=== PATIENT | female | born 2005 | race Caucasian/White ===

== ENCOUNTER 2024-12-01 12:26 | Emergency (ER) | payer MEDICAID, SELFPAY ==
--- NOTE | ~2024-12-01 | CT_ITS ---
CLINICAL HISTORY: diffused abd pain, watery stools ?colitis CT abdomen and pelvis with contrast Comparison: None Findings: The visualized portions of the lungs are normal in appearance. The liver is normal in size without suspicious focal hepatic lesions. No intrahepatic or extrahepatic ductal dilatation is seen. The hepatic and portal veins are patent. No calcified gallstones in the gallbladder. Pancreas, spleen and adrenals are normal in appearance. No suspicious focal lesion of the kidneys. No hydronephrosis or calculi. The abdominal aorta demonstrates no evidence of aneurysmal dilatation or dissection. The colon is normal in appearance and without wall thickening or inflammatory change. Moderate amount of fecal material within the colon. No evidence of bowel obstruction. Appendix is normal. Multiple small follicles of the bilateral ovary. No intraperitoneal free air or fluid is visualized. No pathologic lymphadenopathy is seen. There are no osseous or soft tissue abnormalities. IMPRESSION: No acute findings. Moderate stool burden. This document has been electronically signed by: Guillermina Henning MD on 12/01/2024 19:16:08
[2024-12-01 12:40] VITALS: BP 118/70; PULSE 105; O2SAT 99
[2024-12-01 12:47] VITALS: BP 100/63; PULSE 113; RESP 20; TEMP 37.1; O2SAT 97; BMI 17.5
--- NOTE | 2024-12-01 12:51 | ED_ITS ---
HPI - General Adult General Chief complaint: Abdominal Pain Stated complaint: ABD PAIN,DIAHREA PER EMS Time Seen by Provider: 12/01/24 17:03 Source: patient Mode of arrival: ambulatory Limitations: no limitations History of Present Illness ED Provider: NABIL BUTCHER PA-C HPI narrative: 19 year old female with no significant pmhx presents to the ED today for evaluation of nausea, vomiting, abdominal pain and diarrhea x3 days. Reports feeling generally unwell. She reports acute onset of diffuse abdominal discomfort/ cramping 2 days ago. Shortly after began to have watery stools that are yellow and foamy. This has continued over the last 2 days with multiple bowel movements/ day. Admits to associated nausea and nonbloody vomiting. Denies recent travel outside of the [place]. Denies recent antibiotics. Does not recall eating anything out of the ordinary. She currently lives in a women's housing facility. She is not aware of any other residents having the same symptoms. Denies fever, chills, chest pain, flank pain, urinary sx, vaginal discharge or bleeding. No hx of abdominal surgeries. Related Data Allergies Allergy/AdvReac Type Severity Reaction Status Date / Time No Known Allergies Allergy Verified 12/01/24 12:50 Review of Systems 2 Review of Systems: Yes all other systems are reviewed and are negative PMFSH Past Medical History Attestation statement: The following information was validated with the patient. Source: old records reviewed and nursing notes reviewed Social History Social History Advance Directives: No Advance Directives Information Provided: No Do you have a plan to hurt others: No Plan Physical Exam ED Vital Signs: Vital Signs - 24 hr 12/01/24 12:47 12/01/24 17:17 12/01/24 18:58 Temperature 98.8 F 99.0 F 98.4 F Pulse Rate 113 H 98 76 Respiratory Rate 20 20 20 Blood Pressure 100/63 109/59 L 93/61 Pulse Oximetry 97 99 99 Oxygen Delivery Method Room Air Room Air Room Air BMI result Body Mass Index 17.5 tachycardic, afebrile General: Well appearing, in no acute distress. Skin: Warm, dry, intact. No rashes or lesions. Head: Normocephalic, atraumatic. EENT: Hearing is intact b/l. Conjunctiva clear. PERRLA. EOM intact. Moist mucous membranes.? Cardiac: Chest wall symmetric. RRR Lungs: Normal respiratory effort without accessory muscle use. CTA bilaterally. Abdomen: soft, nondistended, diffusely tender to palpation without rebound or guarding. Active bowel sounds x4. No CVAT bilaterally. Ext: Upper and lower extremities atraumatic, without tenderness, deformity, swelling or erythema Neuro: AOx3. Normal speech. Ambulating with steady gait. Psych: Appropriate mood and affect. Responds appropriately to questions. Course Course Course Narrative: This is a rapid medical exam performed by Raul Costa NP: Additional HPI, ROS, PE not included below will be deferred to primary provider. 12/01/24 12:50 Patient is a 19-year-old female presenting with complaint of generalized abdominal pain, diarrhea, nausea. Son also having diarrhea. Plan: viral panel, labs Reevaluation(s) Reevaluation #1: 1816 -- CBC without leukocytosis or left shift. No anemia. H&H stable. Chemistry without acute electrolyte abnormality requiring intervention. No EDNA. Liver function WNL. Beta HCG undetectable. Not . Urine without infection. Negative COVID, flu, RSV. > GI panel and C diff testing pending > labs are unremarkable however given tenderness on exam, imaging ordered. ct a/p pending. > IVF, zofran and toradol ordered 1851 -- patient stable at the end of my shift. sign out given to Carmen PEREIRA pending CT, stool panel/ c diff panel Time: 19:28 Reevaluation #2: Patient received in sign out from TRUDY Zamora pending CT A/P results. CT notable for moderate stool burden without other acute abnormality. C. diff negative, GI panel pending. Patient reports improvement in symptoms after medications and IV fluids. She feels comfortable with discharge home. Discussed with patient that she will be contacted with any positive results of her GI panel. Will send prescription for Zofran, advised patient she can use [id number] Imodium. Instructed patient to ensure adequate fluid intake with fluids containing electrolytes such as Pedialyte, Gatorade, etc.. Instructed patient to stick to a bland diet until symptoms have improved. Return precautions discussed. Patient verbalized understanding of and agreement with plan. CT abdomen and pelvis with contrast Comparison: None Findings: The visualized portions of the lungs are normal in appearance. The liver is normal in size without suspicious focal hepatic lesions. No intrahepatic or extrahepatic ductal dilatation is seen. The hepatic and portal veins are patent. No calcified gallstones in the gallbladder. Pancreas, spleen and adrenals are normal in appearance. No suspicious focal lesion of the kidneys. No hydronephrosis or calculi. The abdominal aorta demonstrates no evidence of aneurysmal dilatation or dissection. The colon is normal in appearance and without wall thickening or inflammatory change. Moderate amount of fecal material within the colon. No evidence of bowel obstruction. Appendix is normal. Multiple small follicles of the bilateral ovary. No intraperitoneal free air or fluid is visualized. No pathologic lymphadenopathy is seen. There are no osseous or soft tissue abnormalities. IMPRESSION: No acute findings. Moderate stool burden. Medications Administered Discontinued Medications Generic Name Dose Route Start Last Admin Trade Name Freq PRN Reason Stop Dose Admin Sodium Chloride 1,000 mls @ 999 mls/hr 12/01/24 18:00 12/01/24 18:03 Ns IV 12/01/24 19:00 999 mls/hr .Q1H1M SIMONA Administration Iohexol 100 ml 12/01/24 18:38 12/01/24 18:39 Iohexol 350 Mg/Ml 100 Ml Infus..Btl IV 12/01/24 18:39 85 ml ONCE ONE Administration Ketorolac Tromethamine 15 mg 12/01/24 18:14 12/01/24 18:20 Ketorolac Tromethamine 15 Mg/Ml Vial IVPUSH 12/01/24 18:15 15 mg ONCE ONE Administration Ondansetron HCl 4 mg 12/01/24 17:52 12/01/24 18:03 Ondansetron Hcl 4 Mg/2 Ml Vial IVPUSH 12/01/24 17:53 4 mg ONCE ONE Administration Medical Decision Making Medical Decision Making MDM Narrative: 19 year old female with no significant pmhx presents to the ED today for evaluation of nausea, vomiting, abdominal pain and diarrhea x3 days. Patient initially tachycardic to 113, afebrile. she is generally well appearing. on exam, abdomen is soft, nondistended, diffusely tender to palpation without rebound or guarding. Active bowel sounds x4. No CVAT bilaterally. Differential diagnoses: Gastroenteritis, colitis, appendicitis, UTI. Lower suspicion for diverticulitis, diverticulosis, IUP, constipation. Abdominal exam without peritoneal signs. No evidence of acute abdomen at this time. Well appearing. Low suspicion for acute hepatobiliary disease (including acute cholecystitis), acute infectious processes (pneumonia, hepatitis, pyelonephritis, PID, TOA), vascular catastrophe, bowel obstruction or viscus perforation, ovarian cyst/ rupture/ torsion, ectopic. Presentation not consistent with other acute, emergent causes of abdominal pain at this time. Plan: labs, viral swabs, UA, CT AP, pain control, fluids, serial reassessment Differential Diagnosis Differential Diagnoses: The differential diagnosis associated with the presentation includes As above Admission/Observation Consideration of admission/observation: Escalation of care including admission/observation considered admission considered. not indicated. Lab Data MDM Lab Attestation statement: I reviewed the patient's lab results. As above above 12/01/24 13:59 12/01/24 13:59 Labs: Lab Results 12/01/24 12/01/24 Range/Units 13:59 17:47 WBC 5.8 (4.8-10.8) X10*3/uL RBC 5.08 (4.20-5.50) X10*6/uL Hgb 14.5 (12.0-16.0) g/dl Hct 41.6 (37.0-47.0) % MCV 81.9 (80.0-98.0) fL MCH 28.5 (27.0-33.0) pg MCHC 34.9 (31.0-35.0) g/dl RDW 12.8 (11.0-16.0) % Plt Count 229 (160-400) X10*3/uL MPV 11.4 (9.4-12.3) fL Immature Gran % (Auto) 0.2 (0.0-0.4) % Neut % (Auto) 71.7 (45-73) % Lymph % (Auto) 17.9 L (20-40) % Slope % (Auto) 9.0 (2-11) % Eos % (Auto) 1.0 (0-4) % Baso % (Auto) 0.2 (0-2) % Lymph # (Auto) 1.0 L (1.2-4.9) X10*3/uL Slope # (Auto) 0.5 (0.1-1.2) X10*3/uL Eos # (Auto) 0.1 (0.0-0.4) X10*3/uL Baso # (Auto) 0.0 (0.0-0.2) X10*3/uL Abs Immat Gran (auto) 0.01 (0.00-0.03) X10*3/uL Absolute Neuts (auto) 4.1 (2.0-8.3) x10*3/uL Absolute Nucleated RBC 0.000 (0.0-0.012) X10*3/uL Nucleated RBC % (auto) 0.0 (0.0-0.2) /100WBC Sodium 138 (135-145) mmol/L Potassium 3.8 (3.3-5.1) mmol/L Chloride 112 H (96-108) mmol/L Carbon Dioxide 19 L (22-29) mmol/L Anion Gap 11 L (12-20) BUN 12 (9-16) mg/dL Creatinine 0.66 (0.5-1.4) mg/dL Estim Creat Clear Calc 133.0 Estimated GFR > 60 Random Glucose 91 (60-115) mg/dL Calcium 9.2 (8.4-10.2) mg/dL Magnesium 1.9 (1.6-2.6) mg/dL Total Bilirubin 0.7 (0.0-1.0) mg/dL AST 31 (5-31) U/L ALT 24 (0-31) U/L Alkaline Phosphatase 90 (39-117) U/L Total Protein 7.5 (6.5-8.0) g/dL Albumin 4.4 (3.5-5.0) g/dL Beta HCG, Quant < 2 mIU/mL Urine Color Yellow Urine Appearance Clear Urine pH 5.5 (5.0-9.0) Ur Specific [place] >= 1.030 H (1.005-1.025) Urine Protein Trace (Neg-Trace) mg/dL Urine Glucose (UA) Negative (Negative) mg/dL Urine Ketones Trace (Negative) mg/dL Urine Blood Negative (Negative) Urine Nitrite Negative (Negative) Ur Leukocyte Esterase Negative (Negative) C. difficile Tox B Gene NEGATIVE (Negative) Influenza Type A (PCR) NEGATIVE (Negative) Influenza Type B (PCR) NEGATIVE (Negative) RSV RNA Qual (PCR) NEGATIVE (Negative) SARS-CoV-2 RNA (RT-PCR) NEGATIVE (Negative) Independent Interpretation I performed an independent interpretation of an: CT Scan Radiology Impression Discussion of test interpretation with radiology: I have reviewed the radiologist's reading. Social Determinants Patient?s care significantly limited by Social Determinants of Health including: Other Social Determinant of Health Critical Care Time Critical Care Time Critical Care Time: No Discharge Plan Discharge Clinical Impression: Gastroenteritis Patient Disposition: Home, Self-Care Instructions: Gastroenteritis (DC), Acute Diarrhea (ED), Food Poisoning (ED) Additional Instructions: You have been evaluated in the emergency department today for nausea, abdominal pain, and diarrhea. Your evaluation suggests that your symptoms are most likely due to a viral illness which will improve on it's own with rest and fluids. Your stool panel Remember to drink plenty of fluids with electrolytes at home. You are being prescribed ondansetron which you can use as per the prescription instructions for nausea. You can use over the counter Immodium for diarrhea. Please follow up with your primary care provider within two days. Return to the emergency department if you experience worsening or uncontrolled pain, inability to tolerate fluids by mouth, difficulty breathing, fevers 100.4? F or greater, recurrent vomiting, or any other concerning symptoms. Print Language: [place]
[2024-12-01 14:03] LABS: MANUAL DIFF FLAG NO
[2024-12-01 14:05] LABS: Basophils Percent Auto 0.2 % (0-2); Eosinophils Absolute Auto 0.1 X10*3/uL (0.0-0.4); Hematocrit 41.6 % (37.0-47.0); Hemoglobin 14.5 g/dl (12.0-16.0); Imm Gran Abs Auto 0.01 X10*3/uL (0.00-0.03); Imm Gran Pct Auto 0.2 % (0.0-0.4); Lymphocytes Percent Auto 17.9 % (20-40); Mean Corpuscular HGB Conc 34.9 g/dl (31.0-35.0); Mean Corpuscular Hemoglobin 28.5 pg (27.0-33.0); Mean Corpuscular Volume 81.9 fL (80.0-98.0); Mean Platelet Volume 11.4 fL (9.4-12.3); Monocytes Absolute Auto 0.5 X10*3/uL (0.1-1.2); Neutrophils Absolute Auto 4.1 x10*3/uL (2.0-8.3); Neutrophils Percent Auto 71.7 % (45-73); Platelet Count 229 X10*3/uL (160-400); Red Blood Count 5.08 X10*6/uL (4.20-5.50); Red Cell Distribution Width 12.8 % (11.0-16.0); White Blood Count 5.8 X10*3/uL (4.8-10.8)
[2024-12-01 14:24] LABS: Alanine Aminotransferase 24 U/L (0-31); Albumin Level 4.4 g/dL (3.5-5.0); Alkaline Phosphatase 90 U/L (39-117); Anion Gap 11 (12-20); Aspartate Amino Transferase 31 U/L (5-31); Bilirubin Total 0.7 mg/dL (0.0-1.0); Blood Urea Nitrogen 12 mg/dL (9-16); Calcium 9.2 mg/dL (8.4-10.2); Carbon Dioxide 19 mmol/L (22-29); Chloride 112 mmol/L (96-108); Estimated Glomerular Filt Rate > 60; Glucose Random 91 mg/dL (60-115); Magnesium 1.9 mg/dL (1.6-2.6); Potassium 3.8 mmol/L (3.3-5.1); Sodium 138 mmol/L (135-145); Total Protein 7.5 g/dL (6.5-8.0)
[2024-12-01 14:30] LABS: HCG Quantitative < 2 mIU/mL
[2024-12-01 14:46] LABS: Influenza A PCR NEGATIVE (Negative); Influenza B PCR NEGATIVE (Negative); Resp Syncy Virus RNA Qual PCR NEGATIVE (Negative); SARS COV2 PCR INHOUSE NEGATIVE (Negative)
[2024-12-01 17:17] VITALS: BP 109/59; PULSE 98; RESP 20; TEMP 37.2; O2SAT 99
[2024-12-01 18:00] LABS: Appearance Urine Clear; Color Urine Yellow; Glucose Urine UA Negative (Negative); Leukocyte Esterase Urine Negative (Negative); Nitrite Urine Negative (Negative); PH 5.5 (5.0-9.0); Specific Gravity - Urine >= 1.030 (1.005-1.025); Urine Blood Negative (Negative); Urine Ketones Trace mg/dL (Negative); Urine Protein Trace mg/dL (Neg-Trace)
[2024-12-01] MEDS: 0.9 % Sodium Chloride 1,000 ML 999 ML IV (18:03)
[2024-12-01] MEDS: ondansetron HCL 4 MG/2 ML VIAL IVPUSH (18:03)
[2024-12-01] MEDS: Ketorolac Tromethamine 15 MG/ML VIAL IVPUSH (18:20)
[2024-12-01] MEDS: iohexoL 350 MG/ML 100 ML INFUS..BTL IV (18:39)
[2024-12-01 18:58] VITALS: BP 93/61; PULSE 76; RESP 20; TEMP 36.9; O2SAT 99
[2024-12-01 19:06] LABS: CDiff Gene PCR NEGATIVE (Negative)
--- OUTSIDE RECORDS SUMMARY | 2024-12-01 19:49 | XMS_ITS | Continuity of Care Document ---
Author Organization [facility] Address [address] [place] [address] Phone Care Team Providers Care Skiver Sock Linings Name Role Phone Flory MARISELAJan Unavailable Unavailable Allergies, Adverse Reactions, Alerts Substance Reaction Status Criticality No Known Allergies Active No Inform ation Medications Medication Instructions Dosage Effective Dates (start - stop) Status Comments psyllium husk (bulk) 100 % powder Dissolve 1 teaspoon into 8-10oz of water 1-2 times daily - Active Problems Condition Type Effective Dates (start - stop) Clini reuben Status Comments No Known Problems Procedures Procedure Date URINE TEST OFFICE/OUTPATIENT VISIT, EST URINE TEST OFFICE/OUTPATIENT VISIT, EST URINE TEST OFFICE/OUTPATIENT VISIT, EST OFFICE/OUTPATIENT VISIT, EST OFFICE/OUTPATIENT VISIT, EST Left W/O Being Seen URINE TEST OFFICE/OUTPATIENT VISIT, EST PREV VISIT, EST, AGE 12-17 OFFICE/OUTPATIENT VISIT, EST OFFICE/OUTPATIENT VISIT, EST OFFICE/OUTPATIENT VISIT, EST Left W/O Being Seen Depo-Provera OFFICE/OUTPATIENT VISIT, EST URINE TEST Left W/O Being Seen OFFICE/OUTPATIENT VISIT, EST URINE TEST Medication Administration URINE TEST URINE TEST OFFICE/OUTPATIENT VISIT, EST OFFICE/OUTPATIENT VISIT, EST URINALYSIS, AUTO, W/O SCOPE URINE TEST Results Test Name Date and Time Measure Units Reference Range Abnormal Flag Status Commen ts Panel Description: URINE HCG Final URINE HCG negative Negative N Final As per patient privacy policy some of the clinical information may not be visible. Advance Directives Directive Yes / No Effective Date File Name No Information Encounters Encounter Description Practice Location Reason(s) For Visit Diagnoses Date Provider Providers Copied on Encounter OFFICE/OUTPA TIENT VISIT, [facility], [address], [place], [id number], [place] tel:[phone] [facility] confidential. (chief complaint) Vaginal lumpUnprotect ed sex 3 Flory Montoya. [address] [place], [place], [id number], [place]. tel:[phone] OFFICE/OUTPA TIENT VISIT, [facility], [address], [place], [place], [id number], [place] tel:[phone] [facility] ov (chief complaint) Unprotected sexContracept jam education [address] [place], [place], [id number], [place]. tel:[phone] OFFICE/OUTPA TIENT VISIT, [facility], [address], [place], [place], [address], [place] tel:[phone] [facility] ov conf (chief complaint) Unprotected sex [address] [place], [place], [id number], [place]. tel:[phone] OFFICE/OUTPA TIENT VISIT, EST rebecca [facility], [address], [place], [place], [id number], [place] tel:[phone] [facility] f/u (chief complaint) Unprotected sex 3 Flory [address]oya. [address], [place], [id number], [place]. tel:[phone] OFFICE/OUTPA TIENT VISIT, EST rebecca [facility], [address], [place], [place], [id number], [place] tel:[phone] [facility] abd pain. (chief complaint) Contraceptive educationGI symptoms 3 Flory Montoya. [address], [place], [address], [place]. tel:[phone] [facility], [address], [place], [place], [id number], [place] tel:[phone] [facility] Proc/trtmt not crd out d/t pt lv bef seen by [facility] [address] [place], [place], [id number], [place]. tel:[phone] OFFICE/OUTPA TIENT VISIT, EST rebecca [facility], [address] [facility] [address], [place], [place], [id number], [place] tel:[phone] [facility] ov conf (chief complaint) AmenorrheaCon traceptive education [address] [place], [place], [address], [place]. tel:[phone] PREV VISIT, EST, AGE 12-17 [facility], [address] [facility] [address] [facility] [address], [place], [place], [id number], [place] tel:[phone] [facility] CPE. (chief complaint) Encounter for routine child health examination w/o abnormal findingsBMI pediatric, 5th percentile to less than 85% for age Jul-0 2 Flory [address]oya. [address] [place], [place], [id number], [place]. tel:[phone] OFFICE/OUTPA TIENT VISIT, EST [facility], [address] [facility] [address] [facility] [address], [place], [place], [address], [place] tel:[phone] [facility] confidential (chief complaint) General counseling and advice for contraceptive management 2 Flory [address]oya. [address] [place], [place], [address], [place]. tel:[phone] OFFICE/OUTPA TIENT VISIT, EST [facility], [address] [facility] [address], [place], [place], [address], [place] tel:[phone] [facility] GI SXS (chief complaint) Abdominal symptoms May- 2 Flory [address]oya. [address] [place], [place], [address], [place]. tel:[phone] OFFICE/OUTPA TIENT VISIT, EST [facility], [address] [facility] [address], [place], [place], [address], [place] tel:[phone] [facility] pain. (chief complaint) Abdominal symptoms May- 2 Flory Montoya. [address] [place], [place], [address], [place]. tel:[phone] [facility], [address] [facility] [address], [place], [place], [id number], [place] tel:[phone] [facility] Proc/trtmt not crd out d/t pt lv bef seen by [facility] 2 No Information OFFICE/OUTPA TIENT VISIT, EST [facility], [address] [facility] [address], [place], [place], [address], [place] tel:[phone] [facility] confidential (chief complaint) Encounter for Depo-Provera contraception Depressed mood Oct- 2 No Information [facility], [address] [facility] [address] [facility] [address], [place], [place], [address], [place] tel:[phone] [facility] No Information Oct- 2 No Information [facility], [address] [facility] [address], [place], [place], [address], [place] tel:[phone] [facility] Proc/trtmt not crd out d/t pt lv bef seen by [facility] 2 Rose Delaney. [address] [facility], [place], [place], [address], [place]. tel:[phone] OFFICE/OUTPA TIENT VISIT, EST [facility], [address], [place], [place], [id number], [place] tel:[phone] [facility] confidential (chief complaint) Encntr screen for infections w sexl mode of transmissPCB (post coital bleeding) 2 No Information [facility], [address] [facility] [address], [place], [place], [address], [place] tel:[phone] [facility] contraception . (chief complaint) Encounter for Depo-Provera contraception 1 No Information OFFICE/OUTPA TIENT VISIT, EST [facility], [address] [facility],[address], [place], [place], [address], [place] tel:[phone] [facility] confidential (chief complaint) Vaginal dischargePost coital contraceptive counseling 1 No Information [facility], [address] [facility] [address], [place], [place], [address], [place] tel:[phone] [facility] No Information 1 No Information OFFICE/OUTPA TIENT VISIT, EST [facility], [address] [facility] [address], [place], [place], [address], tel:[phone] [facility] confidential (chief complaint) Vaginal dischargePost coital contraceptive counseling No Information Family History Family Member Type Diagnosis Age At Onset No Information Immunizations Vaccine Date Status Comments MCV4-D (Menactra) administered Source: [facility] Flu-IIV4, p-free administered Source: [facility] Flu-IIV4, p-free administered Source: [facility] HPV9v administered Source: Other R egistry HPV9v administered Source: Other R egistry Flu-IIV4, p-free administered Source: [facility] HepA-Peds 2 Dose administered Source: [facility] Flu-IIV4, p-free unknown Source: [facility] HepB-Peds unknown Source: Other R egistry HepA-Peds 2 Dose unknown Source: [facility] Flu-IIV4, p-free unknown Source: [facility] Flu-IIV4, p-free unknown Source: [facility] MCV4-D (Menactra) unknown Source: [facility] Tdap unknown Source: Other R egistry Flu-IIV4, p-free unknown Source: [facility] Registry Flu-LAIV unknown Source: Other R egistry Flu-LAIV unknown Source: Other R egistry Flu-LAIV unknown Source: Other R egistry Flu-LAIV unknown Source: Other R egistry Varicella unknown Source: Other R egistry MMR unknown Source: Other R egistry IPV unknown Source: Other R egistry DTaP unknown Source: Other R egistry MMR unknown Source: Other R egistry Flu-IIV4, p-free Pedi unknown Source : Other Registry Varicella unknown Source: Other R egistry DTaP unknown Source: Other R egistry MMR unknown Source: Other R egistry Hib, unspecified unknown Source: Oth er Registry PCV7 unknown Source: Other R egistry MMR unknown Source: Other R egistry PCV7 unknown Source: Other R egistry Hib-HbOC unknown Source: Other R egistry IPV unknown Source: Other R egistry DTaP unknown Source: Other R egistry [id number] unknown Source: Other Registry PCV7 unknown Source: Other R egistry Hib-HbOC unknown Source: Other R egistry Hib-HbOC unknown Source: Other R egistry PCV7 unknown Source: Other R egistry [id number] unknown Source: Other Registry Hib-HbOC unknown Source: Other R egistry HepB-Peds unknown Source: Other R egistry HepB-Peds unknown Source: Other R egistry Payers Payer name Insurance type Covered democrat ID Darrin gresham(s) Confidential 09 [id number] Social History Type Description Quantity Date Captured Comments Alcohol Use Details Unknown Caffeine Use Details Unknown Tobacco Use Status No Information Smoking Status No Information Sex Female Chief Complaint And Reason For Visit From encounter dated '11/10/2022 11:20'. confidential. (chief complaint). Description: Lang: EnglishHPI: Pt here for concerns of lump in vaginal and requesting test1) Lump. Boyfriend noticed it yesterday while having sex. Has never had before. Not painful. Not red. No VB/VD. Does not feel like it's right near introitus. Wonders if it's r/t frequency of sex she has been having. No condom use. No lubrication2) test. Over past 2wks since 2/26/23, pt has had frequent unprotected sex w/boyfriend. No control use. States that she and her partner have discussed and if she got she would be happy - something that they both want. Feels like they could support a child together. Feels safe w/partner. Denies any verbal/physical abuse. No pressure from him to want to conceive Reason For Referral Reason For Referral No Information Plan Of Treatment Date Type Action Status Goal CT-Colonography. Due on due Goal FIT-DNA. Due on due Goal FOBT. Due on due Goal Fluoride varnish application. Due on due Goal Hematocrit . Due on 023 due Goal Flouride Varnish. Due on Oct due Goal Colonoscopy. Due on 023 due Goal HPV (2nd) due Goal Diabetes Screening. Due on due Goal Document SOGI In formation. Due on due Goal Unhealthy drug u se screening. Due on due Goal Influenza vaccine. Due on Oc due Goal HPV (1st) due Goal Hearing screen ( 10-21 yr). Due on due Goal APE. Due on due Goal HPV (2nd) due Goal CT-Colonography. Due on due Goal Flouride Varnish. Due on Oct due Goal Fluoride varnish application. Due on due Goal Well visit. Due on due Goal FOBT. Due on due Goal Tobacco Usage/Ad vice to Quit. Due on due Goal Colonoscopy. Due on 023 due Goal FIT-DNA. Due on due Goal Influenza vaccine. Due on Oc due Goal Hearing screen ( 10-21 yr). Due on due Goal Hematocrit . Due on 023 due Goal Hearing screen ( 13-18 yr). Due on due Goal Vision screen. Due on due Goal HPV (1st) due Goal Influenza vaccine. Due on due Goal FIT-DNA. Due on due Goal Well visit. Due on due Goal Hematocrit . Due on 023 due Goal Tobacco Usage/Ad vice to Quit. Due on due Goal Colonoscopy. Due on 023 due Goal HPV (2nd) due Goal Fluoride varnish application. Due on due Goal HPV (1st) due Goal Hearing screen ( 13-18 yr). Due on due Goal FOBT. Due on due Goal CT-Colonography. Due on due Goal Flouride Varnish. Due on Oct due Goal Hearing screen ( 10-21 yr). Due on due Goal Vision screen. Due on due Goal HPV (2nd) due Goal Hearing screen ( 10-21 yr). Due on due Goal CT-Colonography. Due on due Goal FIT-DNA. Due on due Goal Tobacco Usage/Ad vice to Quit. Due on due Goal HPV (1st) due Goal Well visit. Due on due Goal FOBT. Due on due Goal Hearing screen ( 13-18 yr). Due on due Goal Colonoscopy. Due on due Goal Influenza vaccine. Due on Oc t due Goal Hematocrit . Due on due Goal Flouride Varnish. Due on Aug due Goal Fluoride varnish application. Due on due Goal Vision screen. Due on due Goal FOBT. Due on due Goal Flouride Varnish. Due on Aug due Goal Tobacco Usage/Ad vice to Quit. Due on due Goal Colonoscopy. Due on due Goal Well visit. Due on due Goal Hearing screen ( 10-21 yr). Due on due Goal Fluoride varnish application. Due on due Goal Influenza vaccine. Due on Oc t due Goal Hearing screen ( 13-18 yr). Due on due Goal Hematocrit . Due on 023 due Goal FIT-DNA. Due on due Goal Vision screen. Due on due Goal HPV (2nd) due Goal CT-Colonography. Due on due Goal HPV (1st) due Goal HPV (2nd) due Goal FOBT. Due on due Goal Hearing screen ( 10-21 yr). Due on due Goal Vision screen. Due on due Goal Flouride Varnish. Due on Aug due Goal FIT-DNA. Due on due Goal Fluoride varnish application. Due on due Goal CT-Colonography. Due on due Goal Well visit. Due on due Goal Hematocrit . Due on 023 due Goal HPV (1st) due Goal Colonoscopy. Due on due Goal Tobacco Usage/Ad vice to Quit. Due on due Goal Hearing screen ( 13-18 yr). Due on due Goal Influenza vaccine. Due on Oc due Goal FIT-DNA. Due on due Goal Vision screen. Due on due Goal Fluoride varnish application. Due on due Goal Influenza vaccine. Due on Oc due Goal Flouride Varnish. Due on Aug due Goal Tobacco Usage/Ad vice to Quit. Due on due Goal Hearing screen ( 10-21 yr). Due on due Goal Well visit. Due on due Goal CT-Colonography. Due on due Goal Colonoscopy. Due on 023 due Goal HPV (1st) due Goal Hematocrit . Due on due Goal FOBT. Due on due Goal HPV (2nd) due Goal Hearing screen ( 13-18 yr). Due on due Goal FIT-DNA. Due on due Goal HPV (1st) due Goal Well visit. Due on due Goal HPV (2nd) due Goal Influenza vaccine. Due on due Goal Tobacco Usage/Ad vice to Quit. Due on due Goal Vision screen. Due on due Goal Hearing screen ( 13-18 yr). Due on due Goal Flouride Varnish. Due on Jul due Goal Colonoscopy. Due on due Goal Hematocrit . Due on due Goal Fluoride varnish application. Due on due Goal Hearing screen ( 10-21 yr). Due on due Goal CT-Colonography. Due on due Goal FOBT. Due on due Goal Hearing screen ( 10-21 yr). Due on due Goal Influenza vaccine. Due on Oc due Goal Hematocrit . Due on due Goal FIT-DNA. Due on due Goal Flouride Varnish. Due on May due Goal Tobacco Usage/Ad vice to Quit. Due on due Goal FOBT. Due on due Goal CT-Colonography. Due on due Goal Well visit. Due on due Goal HPV (1st) due Goal Colonoscopy. Due on due Goal Hearing screen ( 13-18 yr). Due on due Goal Vision screen. Due on due Goal HPV (2nd) due Goal Fluoride varnish application. Due on due Goal Hematocrit . Due on due Goal Fluoride varnish application. Due on due Goal Influenza vaccine. Due on Oc due Goal Vision screen. Due on due Goal Tobacco Usage/Ad vice to Quit. Due on due Goal Hearing screen ( 10-21 yr). Due on due Goal HPV (2nd) due Goal Hearing screen ( 13-18 yr). Due on due Goal Flouride Varnish. Due on May due Goal Well visit. Due on due Goal HPV (1st) due Goal Hematocrit . Due on due Goal Hearing screen ( 13-18 yr). Due on due Goal Well visit. Due on due Goal HPV (2nd) due Goal Fluoride varnish application. Due on due Goal Vision screen. Due on due Goal Flouride Varnish. Due on May due Goal Hearing screen ( 10-21 yr). Due on due Goal Influenza vaccine. Due on Oc due Goal HPV (1st) due Goal Tobacco Usage/Ad vice to Quit. Due on due Goal Tobacco Usage/Ad vice to Quit. Due on due Goal Influenza vaccine. Due on Oc due Goal Hearing screen ( 10-21 yr). Due on due Goal Hearing screen ( 13-18 yr). Due on due Goal HPV (1st) due Goal Hematocrit . Due on due Goal HPV (2nd) due Goal Fluoride varnish application. Due on due Goal Well visit. Due on due Goal Flouride Varnish. Due on Jan due Goal Vision screen. Due on due Goal HPV (1st) due Goal HPV (2nd) due Goal Hearing screen ( 10-21 yr). Due on due Goal Flouride Varnish. Due on Oct due Goal Influenza vaccine. Due on Oc due Goal Tobacco Usage/Ad vice to Quit. Due on due Goal Vision screen. Due on due Goal Hearing screen ( 13-18 yr). Due on due Goal Fluoride varnish application. Due on due Goal Well visit. Due on due Goal Hematocrit . Due on due Goal Flouride Varnish. Due on Oct due Goal Fluoride varnish application. Due on due Goal Hematocrit . Due on due Goal Hearing screen ( 13-18 yr). Due on due Goal HPV (2nd) due Goal Influenza vaccine. Due on Oc due Goal Vision screen. Due on due Goal Well visit. Due on due Goal Tobacco Usage/Ad vice to Quit. Due on due Goal Hearing screen ( 10-21 yr). Due on due Goal Hearing screen ( 13-18 yr). Due on due Goal Well visit. Due on due Goal Flouride Varnish. Due on Oct due Goal Tobacco Usage/Ad vice to Quit. Due on due Goal HPV (2nd) due Goal Influenza vaccine. Due on Oc t-06-2022 due Goal Vision screen. Due on due Goal Hearing screen ( 10-21 yr). Due on due Goal Fluoride varnish application. Due on due Goal Hematocrit . Due on 022 due Goal Hearing screen ( 13-18 yr). Due on due Goal Fluoride varnish application. Due on due Goal Tobacco Usage/Ad vice to Quit. Due on due Goal Well visit. Due on due Goal Vision screen. Due on due Goal Hematocrit . Due on due Goal Hearing screen ( 10-21 yr). Due on due Goal HPV (2nd) due Goal Flouride Varnish. Due on Jul due Goal Influenza vaccine. Due on due Goal Flouride Varnish. Due on Jul due Goal Tobacco Usage/Ad vice to Quit. Due on due Goal Hematocrit . Due on due Goal Fluoride varnish application. Due on due Goal Vision screen. Due on due Goal Influenza vaccine. Due on Oc due Goal Hearing screen ( 13-18 yr). Due on due Goal HPV (2nd) due Goal Well visit. Due on due Goal Hearing screen ( 10-21 yr). Due on due Goal Vision screen. Due on due Goal Hematocrit . Due on due Goal Tobacco Usage/Ad vice to Quit. Due on due Goal Flouride Varnish. Due on May due Goal Hearing screen ( 10-21 yr). Due on due Goal Well visit. Due on 21 due Goal Hearing screen ( 13-18 yr). Due on due Goal HPV (1st) due Goal HPV (2nd) due Goal Fluoride varnish application. Due on due Goal Influenza vaccine. Due on Oc due Goal Tobacco cessation counseling completed Future Order: Lab Order T pallid um Screening Sayre ([id number]), Sent on: Sent Future Order: Lab Order HCV Anti body RFX to Quant PCR ([id number]), Sent on: Sent Future Order: Lab Order 4th Gen HIV screen ([id number]), Sent on: Sent History Of Present Illness Encounter Date Complaint History Of Prese nt Illness confidential. Lang: EnglishHPI : Pt here for concerns of lump in vaginal and requesting test1) Lump. Boyfriend noticed it yesterday while having sex. Has never had before. Not painful. Not red. No VB/VD. Does not feel like it's right near introitus. Wonders if it's r/t frequency of sex she has been having. No condom use. No lubrication2) test. Over past 2wks since 10/26/22, pt has had frequent unprotected sex w/boyfriend. No control use. States that she and her partner have discussed and if she got she would be happy - something that they both want. Feels like they could support a child together. Feels safe w/partner. Denies any verbal/physical abuse. No pressure from him to want to conceive ov 16 yo female pre sents to [facility] for confidential visitLang: EnglishPresents for [facility]gAlso took home test yesterday which was negativeLMP 09/23UPI 09/27No other UPI since last visitStates she talked to her partner about contraceptionDoes not feel contraception is good for her, which was her decisionPrefers to use condoms and plan B as a back-up ov conf 16 yo female pre sents for confidential visitLang: EnglishConcerns: urine hcgStates she had a faint positive hcg at home 3 days agoWould like to do hcg todayLMP 09/23/22Last UPI 09/27/22Never took Plan B as advised by KELLI Ruth last visitNo current regular contraceptionStates she was worried about the side effects like nausea, vomitingAlso states she would be OK with a pregnancySexually active with boyfriend, willingly engages in sexNo other concerns today f/u HPI: Pt reports that she has a couple questionsWondering about Plan B. Pt reports that on Thursday, had UPILMP: 09/23/22 then had unprotected sex on 09/27/22 (2 days ago)she is nervous because her flow stephen tells her that she had a high possibility of the day that she had sex. she and her boyfriend are long distance and don't see each other regularly. she is not currently on any BCM. she is wondering about plan B abd pain. Lang: EnglishPt reports that she had a scare. Was seen last wk for UPI and urine hcg was neg after >2wks since intercourseShe then got her menses, LMP: 09/18/22 - 09/23/22 (yesterday). Started to feel really sick a couple days ago. Had lack of appetite, nausea, headache. Had 2 episodes of vomiting. Feels very weak. No fevers but has been getting hot flashes. C/o a lot of back pain & cramping. Nurse recommended that she come to be seen. Has tried taking APAP which didn't help. Menses felt stronger this time. Hasn't had a period for a few months, LMP: 07/13/22. She was previously on depo but has been off since 10/2021 (~1yr). Prior to initiating depo, her menses were regular ov conf 16 yo female pre sents to [facility] for confidential visitStates she has not had her menses x 2 monthsWould like hcgLMP 07/18/22Sexually active with boyfriend, intermittent condom useHaving sex willingly, not pressuredFeels safe in relationshipDoes not desire pregnancyWas previously on depo, last inj topped because she was having some mood changesLast UPI 08/30/22She took 4 at home hcgs last week and the week prior all of which were negative CPE. 16yo F here for CPEHas [facility]: no recent ED visits or hospitalizationsPMH: Depression, was on meds but no longer. No sxsPSH: noneAllergies: NKDA/NKFAMeds: noneFamhx: denies cardiac, DM; no cancerSH:Born - [place] Lives with - mom, step-dad, 7 siblings; feels safe at homeWork - [employer] serviceSchool: [employer], grade 12. not sure what she wants to do when she graduatesPerformance - doing well - improvingIEP/504/behavior plan - IEP, not sure what it's for but sm setting classes Activities/sports - noneROS:LMP: irregular, will sometimes skip a month; dysmenorrhea, menorrhagia > was prev on depo, stopped ~5mos agoConfidential:Relationships - boyfriend; only interested in males. occasional sex - last intercourse 06/19/22, no condom usePreferred pronouns - she/herSubstances - no EtOH, tobacco, no marijuana useMood - stable confidential 16yo F here for confidential visitHPI: Pt is requesting a test - has been feeling weird having headaches, nausea, dizziness. Last had sex ~1wk ago, no condoms, no BCM. Previously on Depo but stopped 11/2021 because she didn't like how it was making her body feel > cramping w/o period, acne breakouts, more anxiety, more emotional GI SXS 16yo F here to f /u GI sxsLang: EnglishHPI: Pt reports that whenever she eats normal will get rashes, nausea, bloating. Upon clarification, she means when she is not paying attention to labels or particular foods and just eating whatever is available to her - not following any type of diet. She is wondering if she could have celiac diseaseFor example, she ate a bag of tackis (spicy) today and stomach felt bloated and painfulHad cereal a few days ago and then started with a rash & GI sxs. Had waffles yesterday, started w/a rash on her arms - took a photo showing erythematous, raised welts. Rash has persisted todayNoticed when she was eating soy sauce, made her feel full very quicklyContinues with constipation/diarrhea+famhx [facility]ac [facility] sxs - had cscope & EGD completed, waiting on results pain. 16yo F here for multiple issuesLang: EnglishHPI: Pt reports that she has been feeling weird and noticing a change in sense of smell. Has become more sensitive to smells. Very random, not occurring in particular settings. These sxs started about 1-2wks agoAppetite has decreased over the past week. Still eating but can't eat a nrml amount - feels full quickly and will have nausea w/o vomiting. Has been feeling some regurgitation; no heartburn. Abd pain started yesterday - starts in upper abd then radiates down. Pain is worsened w/movement or when stretching. Feels like stomach is bloated after eating but no pain. Also noticed that stool is starting to smell differently - started about 1wk ago. Has constipation at baseline - stopped taking her meds a couple years ago. Noticed blood in stool one day last week. Having BM 2x daily - typically goes once a day. BM have been variable - hard vs. softer. Notices when it's softer it smells more. Not watery. No mucus. Hasn't looked at color of stoolGot a cat 2wks ago and has been taking allergy med every dayno changes to schedule. no new exerciseno coffee, no EtOH, no [id number] diet recall- Breakfast: none- Lunch: white rice, chicken, yogurt- Snacks: none- Dinner: nonedidn't have breakfast but doesn't typicallyhas not tried any medications to improve thisFinished menses last week, LMP: 05/07/22 - 05/14/22not sexually active; no current BCMPMH: nonePSH: noneMeds: none confidential 16yo F seen in [facility] for confidential visit.Lang: EnglishHPT end of Oct - NEGLMP: End of last month, does not remember dateSexual health: No intercourse since AugustTearful throughout visit talking about break up with boyfriend and relationship w/ Mom. She feels safe at home and school, talking w/ the school adjustment counselor and property management assistant about her feelings. She talks with her friends too. Denies SI/HI. confidential 15yo F seen in [facility] for confidential visit.Lang: EnglishPt here today requesting uchg testing. She had Depo injection 08/14/21, 7 days ago she had sex w/o a condom w/ her 16yo M partner. Sex was consensual, she is feeling happy and safe in relationship. She is worried about . She noted one day of light spotting two days following intercourse. Otherwise, she is feeling well. No abnl vaginal dc, fevers, dysuria, abd pain. She has noted labile mood following injection.LMP: uncertain w/ Depo contraception. 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 Has not had return of menses, LMP 05/13/21. No sexual activity since last visit 06/27/21. Has not repeated test at home since last visit w/ neg result. She thinks she is about to get her menses, has been feeling cramping that she normally gets around her menses. She notes a hx of irregular menses, sometimes will skip a month or come late. She has been spending time with some new friends that are a better influence for her, feels this has really improved her mood.She is interested in discussing more about starting contraception today, wants to keep it confidential. Doesn't know what her parents would say if they found out about using control, thinks they would have a lot of questions.Reviewed 06/27/21 Nuswab results neg for gc/ct, trich, BV, and thanh.LMP: 05/13/21, regular every monthContraception: none, interested in startingMeds: NoneNKDAPMH: noneSubstances: current nicotine vaping, never etoh or illicit drugs confidential CONFIDENTIAL VIS IT15yo generally healthy F seen in [facility] for c/o abnl vaginal dc following episode of consensual condomless sex 3wks ago w/ 16yo M sexual partner. Partner is a friend of a friend, felt happy and safe w/ sexual encounter, 1st sexual activity for pt. Did not use condom as they got caught up in the moment . Partner pulled out and did not ejaculate inside of vagina. Does not know if partner has had prior sexual partners or testing for STIs. She and partner are no longer in contact. Since encounter she has been having bilat intermittent suprapubic cramping like a period cramp and 3 days of intermittent spotting last week. Has also been having abnl watery yellowish vaginal dc and vaginal pruritis. No assoc dysuria, frequency, hematuria, or urgency. Has felt intermittently nauseous, no vomiting. No fevers. No diarrhea. No breast tenderness.Parents are not aware of sexual encounter. If she were , she would tell her mom, she knows her mom would help her.LMP: 05/13/21, regular every monthContraception: none, interested in startingMeds: NoneNKDAPMH: noneSubstances: current nicotine vaping, never etoh or illicit drugs Functional Status Date Functional Assessmen t No Information Instructions Date Instruction Additional Infor courtney Dietary and exercise management, guidance, and counseling Related to BMI pediatric, 5th percentile to less than 85% for age Assessments Type Assessment Date assessment Vaginal lump assessment Unprotected sex Patient Care Teams Name Effective Dates (start - stop) Status Members No Information
[2024-12-01 20:33] VITALS: BP 93/60; PULSE 76; RESP 20; TEMP 36.9; O2SAT 99
[2024-12-02 09:12] LABS: Adenovirus F 40/41 Not Detected (Not Detect.); Astrovirus Detected (Not Detect.); Campylobacter Not Detected (Not Detect.); Cryptosporidium Not Detected (Not Detect.); Cyclospora cayetanensis Not Detected (Not Detect.); E. coli EAEC Not Detected (Not Detect.); E. coli EPEC Not Detected (Not Detect.); E. coli ETEC Not Detected (Not Detect.); E. coli STEC Not Detected (Not Detect.); Entamoeba histolytica Not Detected (Not Detect.); Giardia lamblia Not Detected (Not Detect.); Plesiomonas shigelloides Not Detected (Not Detect.); Rotavirus A Not Detected (Not Detect.); Salmonella Not Detected (Not Detect.); Sapovirus Not Detected (Not Detect.); Shigella sp./EIEC Not Detected (Not Detect.); Vibrio Not Detected (Not Detect.); Vibrio Cholerae Not Detected (Not Detect.); Yersinia enterocolitica Not Detected (Not Detect.)
[2024-12-02 09:54] LABS: Norovirus GI/GII Detected (Not Detect.)
== END 2024-12-01 20:34 | disposition home or self-care (01) ==
PROVIDERS: Physician Assistant Medical; Registered Nurse Emergency; Emergency Provider Emergency Medicine
DX: A08.32 Astrovirus enteritis (principal); A08.11 Acute gastroenteropathy due to Norwalk agent; Z03.818 Encounter for observation for suspected exposure to other biological agents ruled out
CPT/HCPCS: 0241U; 74177; 80053; 81003; 83735; 84702; 85025; 87493; 87507; 96361; 96374; 96375; 99284; J1885; J2405; Q9967

== ENCOUNTER → 2024-12-01 18:05 | Outpatient (BNV) | payer MEDICAID, SELFPAY | PROVIDERS: Emergency Provider Emergency Medicine; Visit Provider Nuclear Medicine | DX: K52.9 Noninfective gastroenteritis and colitis, unspecified (principal) | CPT/HCPCS: 74177 ==